=== PATIENT | female | born 1995 | race Caucasian/White ===

== ENCOUNTER 2017-01-27 03:08 | Emergency (ER) | payer BC ==
[~2017-01-27] VITALS: Ht 165.1 cm; Wt 72.8 kg
[~2017-01-27 03:08] MED LIST: BACTRIM,SEPT1 TABLET PO; BUSPAR5 MG PO; CONCERTA18 MG PO; CONCERTA36 MG PO; ESCITALOPRAM OX10 MG PO; FLAGYL500 MG PO; LEVAQUIN250 MG PO; MICROGESTIN FE1 EAC1 PO; MOTRIN600 MG PO; NECON1 EAC4 PO; OXYCODONE HCL5 MG; OXYCODONE HCL5 MG PO; SKELAXIN800 MG PO; VANCOCIN HCL125 MG PO; VOLTAREN75 MG PO; ZOFRAN ODT4 MG PO; ZOFRAN ODT8 MG PO; ZUPLENZ4 MG PO
[2017-01-27] MEDS ORDERED: PROAIR HFA8.5 GM IH (04:54)
[2017-01-27] MEDS ORDERED: PREDNISONE20 MG PO (04:54)
[2017-01-27] MEDS ORDERED: HYCODAN SYRUP480 ML PO (04:54)
[2017-01-27 05:12] VITALS: BP 115/72
== END 2017-01-27 05:13 | disposition home or self-care (01) ==
LOC: EME 03:08
DX: J02.9 Acute pharyngitis, unspecified (principal); J04.0 Acute laryngitis; J06.9 Acute upper respiratory infection, unspecified
CPT/HCPCS: 71020; 87651 90; 94640; J7512